=== PATIENT | male | born 1965 | race Native Hawaiian/Other Pacific Islander ===

== ENCOUNTER 2018-08-07 02:47 | Emergency (ER) | payer OTHER ==
[~2018-08-07] VITALS: Ht 175.3 cm; Wt 150.6 kg
[2018-08-07 02:47] VITALS: BP 120/53; TEMP 97.9
== END 2018-08-07 05:50 | disposition home or self-care (01) ==
LOC: ED 02:47
DX: S89.92XA Unspecified injury of left lower leg, initial encounter (principal); W18.09XA Striking against other object with subsequent fall, initial encounter; Y92.69 Other specified industrial and construction area as the place of occurrence of the external cause
CPT/HCPCS: 96372; 99282; J2175; J2550; L1830